=== PATIENT | female | born 2000 | race Two or more races ===

== ENCOUNTER 2020-08-08 08:15 | Emergency (ER) | payer OTHER ==
[~2020-08-08] VITALS: Ht 165.1 cm; Wt 68.0 kg
[2020-08-08] MEDS ORDERED: PRENA1 TRUE CO1 EACH (08:22)
[2020-08-08] MEDS ORDERED: ENDOMETRIN100 MG VAG (15:02)
== END 2020-08-08 15:20 | disposition home or self-care (01) ==
LOC: ER 08:15
DX: O26.851 Spotting complicating pregnancy, first trimester (principal); O36.80X1 Pregnancy with inconclusive fetal viability, fetus 1; Z36.89 Encounter for other specified antenatal screening; Z3A.01 Less than 8 weeks gestation of pregnancy